=== PATIENT | female | born 1945 | race Two or more races ===

== ENCOUNTER → 2017-06-23 | Outpatient (CLI) | payer MEDICARE, OTHER ==
[~2017-06-23] MED LIST: ALBUAER3 IN; CLON0.1T PO; LEVA3NEB9 NEB; LEVO-28 PO; LISI-646 PO; PRED1SUS3 OP; Pantoprazole Sodium Sesquihydr PO; [UNRECOGNIZED DRUG - CODE] OP
== END | disposition home or self-care (01) ==
LOC: Rad HDHVI 15:03
PROVIDERS: ATTEND Internal Medicine Cardiovascular Disease
DX: I08.0 Rheumatic disorders of both mitral and aortic valves (principal)
CPT/HCPCS: 93306; 93880

== ENCOUNTER 2018-03-08 19:16 | Emergency (ER) | payer MEDICARE, OTHER ==
[~2018-03-08] VITALS: Ht 154.9 cm; Wt 88.5 kg
[2018-03-08] MEDS: HYDROcodone-ACET 10/325MG TAB PO ONE (22:42)
[2018-03-08 23:09] VITALS: BP 185/92
== END 2018-03-09 00:44 | disposition home or self-care (01) ==
LOC: ER 19:20
DX: S42.452A Displaced fracture of lateral condyle of left humerus, initial encounter for closed fracture (principal); S16.1XXA Strain of muscle, fascia and tendon at neck level, initial encounter; S09.8XXA Other specified injuries of head, initial encounter; Z88.1 Allergy status to other antibiotic agents; Z88.2 Allergy status to sulfonamides; Z91.013 Allergy to seafood; W01.0XXA Fall on same level from slipping, tripping and stumbling without subsequent striking against object, initial encounter; Y93.89 Activity, other specified; Y92.89 Other specified places as the place of occurrence of the external cause; Y99.8 Other external cause status
CPT/HCPCS: 70450; 71250; 72125; 73060; 73200; 74176

== ENCOUNTER 2022-11-06 18:28 | Inpatient (IN) | payer MEDICARE, OTHER ==
[~2022-11-06] VITALS: Ht 160 cm; Wt 75.3 kg
[~2022-11-06 18:28] MED LIST changes: +CLIN150C PO; +KETO0.3S OP; -LEVO-28 PO; -LISI-646 PO; +LISI20TA56 PO; -PRED1SUS3 OP; +PRED1SUS4 OP; -[UNRECOGNIZED DRUG - CODE] OP
[2022-11-06] MEDS ORDERED: ETOMIDATE (2MG/ML) 20ML VIAL IV ONE ×2 (18:38→19:15)
[2022-11-06] MEDS ORDERED: SUCCINYLCHOLINE CHLORIDE 20 MG/ML 10ML VIAL IV ONE ×2 (18:39→19:15)
[2022-11-06] MEDS ORDERED: ROCURONIUM 10MG/ML 10ML VIAL IV ONE ×2 (18:39→19:15)
[2022-11-06] MEDS ORDERED: PROPOFOL 100 ML IV ONE (18:51)
[2022-11-06] MEDS ORDERED: PROPOFOL 100 ML IV SCH ×2 (19:00→19:15)
[2022-11-06] MEDS ORDERED: SODIUM CHLORIDE 0.9% 1,000 ML IV ONE (19:15)
[2022-11-06 19:19] LABS: Mean Corpuscular Hemoglobin 15.9 pg (28.0-32.0); Mean Corpuscular Hgb Conc. 25.2 g/dL (32.0-36.0); White Blood Cell 8.6 10^3/uL (4.4-10.8)
[2022-11-06 19:21] LABS: Hematocrit 25.8 % (36.0-46.0); Mean Corpuscular Volume 63.1 fL (80.0-100.0); Red Blood Cells 4.08 10^6/uL (4.0-5.20)
[2022-11-06 19:28] LABS: Albumin 3.6 g/dL (3.4-5.0); Calcium 8.4 mg/dL (8.5-10.1); Potassium 5.2 mmol/L (3.5-5.1); Red Cell Distribution Width 22.6 % (11.8-14.3)
[2022-11-06 19:30] LABS: Hemoglobin 6.5 g/dL (12.2-16.2)
[2022-11-06 19:31] LABS: BUN/Creatinine Ratio 18.7 (10.0-20.0); Band Neutrophils % (manual) 0; Basophils % (manual) 0 (0.0-2.0); Bilirubin, Total 0.8 mg/dL (0.2-1.0); Blast Cells 0; Metamyelocytes % 0; Myelocytes % 0; Promyelocytes % 0; Reactive Lymphocytes 0; Total Protein 6.9 g/dL (6.4-8.2)
[2022-11-06 19:44] LABS: INR 1.22 (0.9-1.15); Partial Thromboplastin Time < 20.0 sec (24.6-33.4)
[2022-11-06 19:50] LABS: Eosinophils % (manual) 1 (0-7); Lymphocytes % (manual) 29 (10.0-50.0); Monocytes % (manual) 1 (0-12)
[2022-11-06] MEDS: fentaNYL Drip 2500mCg/250mlNS 250 ML IV SCH (21:00)
[2022-11-06 21:08] VITALS: BP 143/84
[2022-11-06 21:40] VITALS: BP 114/58
[2022-11-06 23:45] VITALS: BP 104/62
[2022-11-07] VITALS (93 sets, daily range): BP systolic 76–154; BP diastolic 43–78
[2022-11-07] MEDS ORDERED: DEXTROSE (50%) 50ML SYRG IV PRN (01:45)
[2022-11-07] MEDS ORDERED: ACETAMINOPHEN 650 MG RECT SUPP PR PRN (01:45)
[2022-11-07] MEDS ORDERED: AZITHROMYCIN 500MG/ 250ML 250 ML IV ONE (01:45)
[2022-11-07] MEDS ORDERED: NITROGLYCERIN 0.4 MG SL TAB SL PRN (01:45)
[2022-11-07] MEDS ORDERED: MORPHINE SULFATE INJ 2 MG/ml SYRG IV PRN (01:45)
[2022-11-07] MEDS ORDERED: ONDANSETRON HCL 4 MG/2 ML VIAL IV PRN (01:45)
[2022-11-07] MEDS ORDERED: FUROSEMIDE 20 MG/2 ML VIAL IV ONE (01:45)
[2022-11-07] MEDS ORDERED: MIDAZOLAM DRIP 50 mg/50mL 50 ML IV ONE ×2 (02:05→08:35)
[2022-11-07] MEDS: MIDAZOLAM DRIP 50 mg/50mL 50 ML IV SCH ×5 (02:26→22:00)
[2022-11-07 03:57] LABS: Albumin 2.8 g/dL (3.4-5.0); BUN/Creatinine Ratio 22.5 (10.0-20.0); Calcium 8.8 mg/dL (8.5-10.1); Potassium 4.5 mmol/L (3.5-5.1)
[2022-11-07 04:00] LABS: Bilirubin, Total 0.7 mg/dL (0.2-1.0); Total Protein 5.6 g/dL (6.4-8.2)
[2022-11-07 04:27] LABS: Mean Corpuscular Volume 58.4 fL (80.0-100.0); White Blood Cell 6.2 10^3/uL (4.4-10.8)
[2022-11-07 04:29] LABS: Hematocrit 18.9 % (36.0-46.0); Mean Corpuscular Hemoglobin 16.1 pg (28.0-32.0); Mean Corpuscular Hgb Conc. 27.5 g/dL (32.0-36.0); Red Blood Cells 3.24 10^6/uL (4.0-5.20)
[2022-11-07 04:39] LABS: Red Cell Distribution Width 21.5 % (11.8-14.3)
[2022-11-07 04:41] LABS: Hemoglobin 5.2 g/dL (12.2-16.2)
[2022-11-07 04:43] LABS: Band Neutrophils % (manual) 0; Basophils % (manual) 0 (0.0-2.0); Blast Cells 0; Eosinophils % (manual) 0 (0-7); Metamyelocytes % 0; Myelocytes % 0; Promyelocytes % 0; Reactive Lymphocytes 0
[2022-11-07] MEDS: ACCU-CHEK COMFORT CURVE STRIP VI SCH ×4 (06:00→23:22)
[2022-11-07] MEDS: InsuLIN REG 1unit/0.01ml Soln (100units/ml) SC SCH ×4 (06:00→23:22)
[2022-11-07] MEDS: SODIUM CHLOR 0.9% PF (SALINE LOCK) 10ML VIAL/SYR IV SCH ×3 (06:00→22:13)
[2022-11-07] MEDS: NOREPINEPHRINE 8 MG/250ML KIT 250 ML IV SCH (06:43)
[2022-11-07] MEDS ORDERED: fentaNYL Drip 2500mCg/250mlNS 250 ML IV ONE (08:35)
[2022-11-07 09:20] LABS: Lymphocytes % (manual) 29 (10.0-50.0)
[2022-11-07 09:21] LABS: Monocytes % (manual) 7 (0-12)
[2022-11-07] MEDS ORDERED: FAMOTIDINE (10MG/ML) 2ML VL IV SCH (10:00)
[2022-11-07] MEDS: FUROSEMIDE 40 MG/4 ML VIAL IV SCH (10:43)
[2022-11-07] MEDS: HEPARIN SODIUM (PORCINE) 5000 UNITS/ML 1ML VIAL SC SCH ×2 (10:44→22:18)
[2022-11-07] MEDS: AZITHROMYCIN 500MG/ 250ML 250 ML IV SCH (12:07)
[2022-11-07] MEDS ORDERED: PANTOPRAZOLE 40 MG/10 ML VIAL INJ IV ONE (15:30)
[2022-11-07] MEDS ORDERED: cefTRIAXone 1GM/50ML D5W 50 ML IV ONE (15:30)
[2022-11-07] MEDS: fentaNYL Drip 2500mCg/250mlNS 250 ML IV SCH (21:11)
[2022-11-08] VITALS (106 sets, daily range): BP systolic 50–167; BP diastolic 11–90
[2022-11-08] MEDS ORDERED: NITROGLYCERIN 2% OINT 1GM PKG TD ONE (04:00)
[2022-11-08 04:32] LABS: Potassium 3.5 mmol/L (3.5-5.1)
[2022-11-08 04:33] LABS: INR 1.25 (0.9-1.15); Partial Thromboplastin Time < 20.0 sec (24.6-33.4)
[2022-11-08 04:38] LABS: Albumin 2.7 g/dL (3.4-5.0)
[2022-11-08 04:41] LABS: Bilirubin, Total 1.8 mg/dL (0.2-1.0); Total Protein 5.9 g/dL (6.4-8.2)
[2022-11-08] MEDS: PANTOPRAZOLE 40 MG/10 ML VIAL INJ IV SCH ×2 (04:47→17:22)
[2022-11-08] MEDS: MIDAZOLAM DRIP 50 mg/50mL 50 ML IV SCH ×4 (04:55→18:00)
[2022-11-08] MEDS: NOREPINEPHRINE 8 MG/250ML KIT 250 ML IV SCH ×2 (05:30→12:34)
[2022-11-08] MEDS: SODIUM CHLOR 0.9% PF (SALINE LOCK) 10ML VIAL/SYR IV SCH ×4 (05:34→21:39)
[2022-11-08] MEDS: InsuLIN REG 1unit/0.01ml Soln (100units/ml) SC SCH ×3 (05:34→18:04)
[2022-11-08] MEDS: ACCU-CHEK COMFORT CURVE STRIP VI SCH ×3 (05:34→18:03)
[2022-11-08 06:47] LABS: Basophils # (auto) 0.1 10 ^3/uL (0-0.2); Mean Corpuscular Volume 65.2 fL (80.0-100.0)
[2022-11-08 06:49] LABS: Basophils % (auto) 0.9 % (0.0-2.0); Eosinophils # (auto) 0 10 ^3/uL (0-0.8); Eosinophils % (auto) 0.7 % (0.0-7.0); Hematocrit 17.9 % (36.0-46.0); Lymphocytes # (auto) 0.7 10 ^3/uL (0.4-5.4); Lymphocytes % (auto) 12.2 % (10.0-50.0); Mean Corpuscular Hemoglobin 19.3 pg (28.0-32.0); Mean Corpuscular Hgb Conc. 29.6 g/dL (32.0-36.0); Monocytes # (auto) 0.4 10 ^3/uL (0-1.3); Monocytes % (auto) 6.5 % (0.0-12.0); Neutrophils # (auto) 4.7 10 ^3/uL (1.6-8.6); Neutrophils % (auto) 79.7 % (37.0-80.0); Nucleated Red Blood Cells % 0.5 %; Red Blood Cells 2.75 10^6/uL (4.0-5.20); White Blood Cell 5.9 10^3/uL (4.4-10.8)
[2022-11-08 06:54] LABS: Red Cell Distribution Width 26.8 % (11.8-14.3)
[2022-11-08 06:56] LABS: Hemoglobin 5.3 g/dL (12.2-16.2)
[2022-11-08 09:26] LABS: Hemoglobin 10.3 g/dL (12.2-16.2); Mean Corpuscular Hemoglobin 18.6 pg (28.0-32.0)
[2022-11-08 09:27] LABS: Basophils # (auto) 0.2 10 ^3/uL (0-0.2); Basophils % (auto) 1.2 % (0.0-2.0); Eosinophils # (auto) 0.2 10 ^3/uL (0-0.8); Eosinophils % (auto) 1.7 % (0.0-7.0); Hematocrit 35.3 % (36.0-46.0); Lymphocytes # (auto) 1.5 10 ^3/uL (0.4-5.4); Lymphocytes % (auto) 11.1 % (10.0-50.0); Mean Corpuscular Hgb Conc. 29.1 g/dL (32.0-36.0); Mean Corpuscular Volume 63.8 fL (80.0-100.0); Monocytes % (auto) 7.8 % (0.0-12.0); Neutrophils # (auto) 10.4 10 ^3/uL (1.6-8.6); Neutrophils % (auto) 78.2 % (37.0-80.0); Nucleated Red Blood Cells % 2.2 %; Red Blood Cells 5.53 10^6/uL (4.0-5.20); White Blood Cell 13.3 10^3/uL (4.4-10.8)
[2022-11-08 09:30] LABS: Red Cell Distribution Width 27.5 % (11.8-14.3)
[2022-11-08] MEDS: cefTRIAXone 1GM/50ML D5W 50 ML IV SCH ×2 (09:31→13:00)
[2022-11-08] MEDS: fentaNYL Drip 2500mCg/250mlNS 250 ML IV SCH (09:32)
[2022-11-08] MEDS: HEPARIN SODIUM (PORCINE) 5000 UNITS/ML 1ML VIAL SC SCH ×2 (09:33→21:40)
[2022-11-08] MEDS: FUROSEMIDE 40 MG/4 ML VIAL IV SCH (09:51)
[2022-11-08] MEDS: LIDOCAINE 1% (LOCAL ANESTH.) PF 5ml SDV ID ONE (10:45)
[2022-11-08] MEDS: AZITHROMYCIN 500MG/ 250ML 250 ML IV SCH (13:38)
[2022-11-08] MEDS ORDERED: MIDAZOLAM HCL 2MG/2ML 2ml VIAL (1mg/ml) IV PRN (18:00)
[2022-11-09] VITALS (102 sets, daily range): BP systolic 93–155; BP diastolic 36–93
[2022-11-09] MEDS: ACCU-CHEK COMFORT CURVE STRIP VI SCH ×4 (00:32→18:06)
[2022-11-09] MEDS: InsuLIN REG 1unit/0.01ml Soln (100units/ml) SC SCH ×4 (00:35→18:00)
[2022-11-09] MEDS: PANTOPRAZOLE 40 MG/10 ML VIAL INJ IV SCH ×2 (02:58→15:41)
[2022-11-09 04:02] LABS: Basophils # (auto) 0.1 10 ^3/uL (0-0.2); Eosinophils # (auto) 0.1 10 ^3/uL (0-0.8); Monocytes # (auto) 0.6 10 ^3/uL (0-1.3); White Blood Cell 12.8 10^3/uL (4.4-10.8)
[2022-11-09 04:04] LABS: Basophils % (auto) 0.6 % (0.0-2.0); Eosinophils % (auto) 0.8 % (0.0-7.0); Hematocrit 30.4 % (36.0-46.0); Hemoglobin 9.1 g/dL (12.2-16.2); Lymphocytes # (auto) 1.7 10 ^3/uL (0.4-5.4); Lymphocytes % (auto) 13.5 % (10.0-50.0); Mean Corpuscular Hemoglobin 19.1 pg (28.0-32.0); Mean Corpuscular Volume 63.7 fL (80.0-100.0); Neutrophils # (auto) 10.3 10 ^3/uL (1.6-8.6); Neutrophils % (auto) 80.1 % (37.0-80.0); Nucleated Red Blood Cells % 0.1 %; Red Blood Cells 4.78 10^6/uL (4.0-5.20)
[2022-11-09 04:13] LABS: Red Cell Distribution Width 28.2 % (11.8-14.3)
[2022-11-09 04:18] LABS: Potassium 3.4 mmol/L (3.5-5.1)
[2022-11-09 04:25] LABS: Albumin 2.6 g/dL (3.4-5.0); BUN/Creatinine Ratio 19.4 (10.0-20.0); Calcium 8.1 mg/dL (8.5-10.1); Magnesium 2.1 mg/dL (1.6-2.6); Total Protein 5.6 g/dL (6.4-8.2)
[2022-11-09] MEDS: SODIUM CHLOR 0.9% PF (SALINE LOCK) 10ML VIAL/SYR IV SCH ×4 (06:11→22:31)
[2022-11-09] MEDS: cefTRIAXone 1GM/50ML D5W 50 ML IV SCH (09:35)
[2022-11-09] MEDS: AZITHROMYCIN 500MG/ 250ML 250 ML IV SCH (10:12)
[2022-11-09] MEDS: FUROSEMIDE 40 MG/4 ML VIAL IV SCH (10:25)
[2022-11-09] MEDS: HEPARIN SODIUM (PORCINE) 5000 UNITS/ML 1ML VIAL SC SCH ×2 (10:30→22:32)
[2022-11-09] MEDS: POTASSIUM CHL 20MEQ/100ML 100 ML IV SCH ×3 (15:40→18:06)
[2022-11-09] MEDS ORDERED: CLINIMIX PER PHARMACY 0 ML IV SCH (19:00)
[2022-11-09] MEDS ORDERED: DEXTROSE (50%) 50ML SYRG IV SCH (21:15)
[2022-11-09] MEDS: AMINO ACID INFUSION IN D10W 1,000 ML IV NR (22:30)
[2022-11-10] VITALS (103 sets, daily range): BP systolic 80–175; BP diastolic 36–92
[2022-11-10] MEDS: PANTOPRAZOLE 40 MG/10 ML VIAL INJ IV SCH ×2 (03:00→15:28)
[2022-11-10] MEDS: ACCU-CHEK COMFORT CURVE STRIP VI SCH ×5 (06:00→23:47)
[2022-11-10] MEDS: InsuLIN REG 1unit/0.01ml Soln (100units/ml) SC SCH ×5 (06:33→23:48)
[2022-11-10 07:08] LABS: Hematocrit 28.3 % (36.0-46.0); Hemoglobin 8.3 g/dL (12.2-16.2); Mean Corpuscular Hemoglobin 18.7 pg (28.0-32.0); Mean Corpuscular Hgb Conc. 29.4 g/dL (32.0-36.0); Mean Corpuscular Volume 63.7 fL (80.0-100.0); Red Blood Cells 4.45 10^6/uL (4.0-5.20); White Blood Cell 13.3 10^3/uL (4.4-10.8)
[2022-11-10 07:11] LABS: Red Cell Distribution Width 28.2 % (11.8-14.3)
[2022-11-10 07:13] LABS: Band Neutrophils % (manual) 0; Basophils % (manual) 0 (0.0-2.0); Blast Cells 0; Metamyelocytes % 0; Myelocytes % 0; Promyelocytes % 0; Reactive Lymphocytes 0
[2022-11-10 07:24] LABS: Albumin 2.3 g/dL (3.4-5.0); Magnesium 1.9 mg/dL (1.6-2.6); Potassium 3.7 mmol/L (3.5-5.1)
[2022-11-10 07:28] LABS: BUN/Creatinine Ratio 23.6 (10.0-20.0); Bilirubin, Total 0.9 mg/dL (0.2-1.0); Phosphorus 2.8 mg/dL (2.5-4.90); Total Protein 5.6 g/dL (6.4-8.2)
[2022-11-10 08:17] LABS: Eosinophils % (manual) 1 (0-7); Lymphocytes % (manual) 13 (10.0-50.0); Monocytes % (manual) 4 (0-12)
[2022-11-10] MEDS ORDERED: MAGNESIUM SULFATE 1GM/100ML 100 ML IV ONE (08:30)
[2022-11-10 09:46] LABS: Urine Bacteria FEW /hpf (None Seen); Urine Blood 3+ /uL (Negative); Urine Mucus FEW (None Seen); Urine Specific Gravity 1.023 (1.001-1.035); Urine WBC 20 /hpf (0 - 5)
[2022-11-10] MEDS: FUROSEMIDE 40 MG/4 ML VIAL IV SCH (10:05)
[2022-11-10] MEDS: HEPARIN SODIUM (PORCINE) 5000 UNITS/ML 1ML VIAL SC SCH ×2 (10:06→21:41)
[2022-11-10] MEDS: SODIUM CHLOR 0.9% PF (SALINE LOCK) 10ML VIAL/SYR IV SCH ×2 (10:19→21:56)
[2022-11-10] MEDS: cefTRIAXone 1GM/50ML D5W 50 ML IV SCH (10:19)
[2022-11-10] MEDS: AZITHROMYCIN 500MG/ 250ML 250 ML IV SCH (11:09)
[2022-11-10] MEDS: fentaNYL Drip 2500mCg/250mlNS 250 ML IV SCH (12:47)
[2022-11-10] MEDS: NOREPINEPHRINE 8 MG/250ML KIT 250 ML IV SCH (12:47)
[2022-11-10] MEDS ORDERED: AMINO ACID INFUSION IN D10W 1,000 ML IV NR (20:00)
[2022-11-10] MEDS: AMINO ACID INFUSION IN D10W 1,000 ML IV NR (21:42)
[2022-11-11] VITALS (89 sets, daily range): BP systolic 78–208; BP diastolic 39–108
[2022-11-11] MEDS: PANTOPRAZOLE 40 MG/10 ML VIAL INJ IV SCH ×2 (03:28→15:04)
[2022-11-11 04:19] LABS: Potassium 3.1 mmol/L (3.5-5.1)
[2022-11-11 04:25] LABS: Albumin 2.2 g/dL (3.4-5.0); BUN/Creatinine Ratio 31.3 (10.0-20.0); Bilirubin, Total 0.8 mg/dL (0.2-1.0); Calcium 8.1 mg/dL (8.5-10.1); Phosphorus 2.1 mg/dL (2.5-4.90); Total Protein 5.4 g/dL (6.4-8.2)
[2022-11-11 04:35] LABS: Red Blood Cells 3.98 10^6/uL (4.0-5.20)
[2022-11-11 04:37] LABS: Hematocrit 25.4 % (36.0-46.0); Hemoglobin 7.7 g/dL (12.2-16.2); Mean Corpuscular Hemoglobin 19.2 pg (28.0-32.0); Mean Corpuscular Hgb Conc. 30.1 g/dL (32.0-36.0); Mean Corpuscular Volume 63.9 fL (80.0-100.0)
[2022-11-11 04:44] LABS: Band Neutrophils % (manual) 0; Basophils % (manual) 0 (0.0-2.0); Blast Cells 0; Metamyelocytes % 0; Myelocytes % 0; Promyelocytes % 0; Reactive Lymphocytes 0
[2022-11-11] MEDS: NOREPINEPHRINE 8 MG/250ML KIT 250 ML IV SCH (05:30)
[2022-11-11] MEDS: ACCU-CHEK COMFORT CURVE STRIP VI SCH ×4 (06:00→23:58)
[2022-11-11] MEDS: InsuLIN REG 1unit/0.01ml Soln (100units/ml) SC SCH ×3 (06:52→18:21)
[2022-11-11 08:16] LABS: Eosinophils % (manual) 2 (0-7); Lymphocytes % (manual) 9 (10.0-50.0); Monocytes % (manual) 4 (0-12)
[2022-11-11] MEDS: FUROSEMIDE 40 MG/4 ML VIAL IV SCH (09:37)
[2022-11-11] MEDS: cefTRIAXone 1GM/50ML D5W 50 ML IV SCH (09:38)
[2022-11-11] MEDS: AZITHROMYCIN 500MG/ 250ML 250 ML IV SCH (09:38)
[2022-11-11] MEDS: SODIUM CHLOR 0.9% PF (SALINE LOCK) 10ML VIAL/SYR IV SCH ×2 (09:41→21:30)
[2022-11-11] MEDS: HEPARIN SODIUM (PORCINE) 5000 UNITS/ML 1ML VIAL SC SCH ×2 (09:43→21:31)
[2022-11-11] MEDS ORDERED: POTASSIUM PHOSPHATE 44 MEQ in D5W 5% 250 ML IV ONE (10:30)
[2022-11-11] MEDS: fentaNYL Drip 2500mCg/250mlNS 250 ML IV SCH ×2 (11:48→21:00)
[2022-11-11] MEDS: POTASSIUM CHL 20MEQ/100ML 100 ML IV SCH ×2 (11:57→15:04)
[2022-11-11] MEDS ORDERED: POTASSIUM PHOSPHATE 22 MEQ in SODIUM CHL 0.9% 100 ML IV ONE (14:00)
[2022-11-11] MEDS ORDERED: SODIUM PHOSPHATES 20 MEQ in SODIUM CHL 0.9% 100 ML IV ONE (18:00)
[2022-11-11] MEDS: PROPOFOL 100 ML IV SCH (18:07)
[2022-11-11] MEDS: AMINO ACID INFUSION IN D10W 1,000 ML IV NR (20:08)
[2022-11-12] VITALS (92 sets, daily range): BP systolic 104–167; BP diastolic 46–92
[2022-11-12] MEDS: PROPOFOL 100 ML IV SCH (01:57)
[2022-11-12] MEDS: PANTOPRAZOLE 40 MG/10 ML VIAL INJ IV SCH ×2 (03:07→17:07)
[2022-11-12] MEDS: NOREPINEPHRINE 8 MG/250ML KIT 250 ML IV SCH (04:24)
[2022-11-12 04:40] LABS: Albumin 2.2 g/dL (3.4-5.0); Calcium 8.2 mg/dL (8.5-10.1); Magnesium 1.9 mg/dL (1.6-2.6); Potassium 3.2 mmol/L (3.5-5.1)
[2022-11-12 04:42] LABS: BUN/Creatinine Ratio 31.6 (10.0-20.0)
[2022-11-12 04:44] LABS: Phosphorus 2.2 mg/dL (2.5-4.90); Total Protein 5.8 g/dL (6.4-8.2)
[2022-11-12 05:02] LABS: Hematocrit 27.1 % (36.0-46.0); Mean Corpuscular Hemoglobin 19.1 pg (28.0-32.0); Mean Corpuscular Hgb Conc. 29.6 g/dL (32.0-36.0); Mean Corpuscular Volume 64.6 fL (80.0-100.0); Red Blood Cells 4.19 10^6/uL (4.0-5.20); Red Cell Distribution Width 28.2 % (11.8-14.3); White Blood Cell 8.1 10^3/uL (4.4-10.8)
[2022-11-12 05:04] LABS: Band Neutrophils % (manual) 0; Basophils % (manual) 0 (0.0-2.0); Blast Cells 0; Metamyelocytes % 0; Myelocytes % 0; Promyelocytes % 0; Reactive Lymphocytes 0
[2022-11-12] MEDS: ACCU-CHEK COMFORT CURVE STRIP VI SCH ×3 (06:20→17:53)
[2022-11-12] MEDS: InsuLIN REG 1unit/0.01ml Soln (100units/ml) SC SCH ×4 (06:37→17:53)
[2022-11-12 08:58] LABS: Eosinophils % (manual) 3 (0-7); Lymphocytes % (manual) 25 (10.0-50.0); Monocytes % (manual) 7 (0-12)
[2022-11-12] MEDS ORDERED: ALBUTEROL SULF 2.5 MG/0.5ML(0.5%) NEB SOLN ONE (09:44)
[2022-11-12] MEDS ORDERED: IPRATROPIUM BROM 0.5 MG/2.5ML INH SOL ONE (09:44)
[2022-11-12] MEDS: FUROSEMIDE 40 MG/4 ML VIAL IV SCH (09:57)
[2022-11-12] MEDS: AZITHROMYCIN 500MG/ 250ML 250 ML IV SCH (09:57)
[2022-11-12] MEDS: cefTRIAXone 1GM/50ML D5W 50 ML IV SCH (09:58)
[2022-11-12] MEDS: POTASSIUM CHL 20MEQ/100ML 100 ML IV SCH ×2 (09:58→10:00)
[2022-11-12] MEDS: HEPARIN SODIUM (PORCINE) 5000 UNITS/ML 1ML VIAL SC SCH ×2 (10:08→21:57)
[2022-11-12] MEDS: SODIUM CHLOR 0.9% PF (SALINE LOCK) 10ML VIAL/SYR IV SCH ×2 (10:09→21:55)
[2022-11-12] MEDS ORDERED: POTASSIUM PHOSPHATE 22 MEQ in SODIUM CHL 0.9% 100 ML IV ONE (11:00)
[2022-11-12] MEDS ORDERED: IPRATROPIUM BROM 0.5 MG/2.5ML INH SOL NEB SCH (14:00)
[2022-11-12] MEDS: ALBUTEROL SULF 2.5 MG/0.5ML(0.5%) NEB SOLN NEB SCH ×3 (14:39→22:16)
[2022-11-12] MEDS: IPRATROPIUM BROM 0.5 MG/2.5ML INH SOL NEB SCH ×2 (14:39→18:12)
[2022-11-12] MEDS: fentaNYL Drip 2500mCg/250mlNS 250 ML IV SCH (20:14)
[2022-11-12] MEDS: AMINO ACID INFUSION IN D10W 1,000 ML IV NR (20:30)
[2022-11-13] VITALS (43 sets, daily range): BP systolic 107–154; BP diastolic 50–82
[2022-11-13] MEDS: ACCU-CHEK COMFORT CURVE STRIP VI SCH ×6 (00:01→23:26)
[2022-11-13] MEDS: InsuLIN REG 1unit/0.01ml Soln (100units/ml) SC SCH ×5 (00:07→23:28)
[2022-11-13] MEDS: IPRATROPIUM BROM 0.5 MG/2.5ML INH SOL NEB SCH ×6 (02:06→22:05)
[2022-11-13] MEDS: ALBUTEROL SULF 2.5 MG/0.5ML(0.5%) NEB SOLN NEB SCH ×6 (02:06→22:05)
[2022-11-13] MEDS: PANTOPRAZOLE 40 MG/10 ML VIAL INJ IV SCH ×2 (03:29→15:30)
[2022-11-13] MEDS: NOREPINEPHRINE 8 MG/250ML KIT 250 ML IV SCH (03:30)
[2022-11-13 04:10] LABS: Eosinophils # (auto) 0.2 10 ^3/uL (0-0.8)
[2022-11-13 04:13] LABS: Basophils # (auto) 0.1 10 ^3/uL (0-0.2); Basophils % (auto) 0.8 % (0.0-2.0); Eosinophils % (auto) 2.9 % (0.0-7.0); Hematocrit 28.1 % (36.0-46.0); Hemoglobin 8.2 g/dL (12.2-16.2); Lymphocytes # (auto) 1.2 10 ^3/uL (0.4-5.4); Lymphocytes % (auto) 17.5 % (10.0-50.0); Mean Corpuscular Volume 65.5 fL (80.0-100.0); Monocytes # (auto) 0.9 10 ^3/uL (0-1.3); Monocytes % (auto) 12.7 % (0.0-12.0); Neutrophils # (auto) 4.6 10 ^3/uL (1.6-8.6); Neutrophils % (auto) 66.1 % (37.0-80.0); Nucleated Red Blood Cells % 0.1 %; Red Blood Cells 4.28 10^6/uL (4.0-5.20); White Blood Cell 6.9 10^3/uL (4.4-10.8)
[2022-11-13 04:19] LABS: Albumin 2.3 g/dL (3.4-5.0); Calcium 8.7 mg/dL (8.5-10.1); Potassium 3.7 mmol/L (3.5-5.1)
[2022-11-13 04:22] LABS: BUN/Creatinine Ratio 33.8 (10.0-20.0); Bilirubin, Total 1.1 mg/dL (0.2-1.0); Phosphorus 3.2 mg/dL (2.5-4.90)
[2022-11-13] MEDS: SODIUM CHLOR 0.9% PF (SALINE LOCK) 10ML VIAL/SYR IV SCH ×2 (08:58→23:06)
[2022-11-13] MEDS: cefTRIAXone 1GM/50ML D5W 50 ML IV SCH (08:58)
[2022-11-13] MEDS: FUROSEMIDE 40 MG/4 ML VIAL IV SCH (08:58)
[2022-11-13] MEDS: HEPARIN SODIUM (PORCINE) 5000 UNITS/ML 1ML VIAL SC SCH ×2 (08:59→23:26)
[2022-11-13] MEDS: AZITHROMYCIN 500MG/ 250ML 250 ML IV SCH (09:30)
[2022-11-13] MEDS: Glucerna Carbsteady SHAKE Vanilla 8oz PO SCH (17:54)
[2022-11-13] MEDS: AMINO ACID INFUSION IN D10W 1,000 ML IV NR (20:52)
[2022-11-14] MEDS: ALBUTEROL SULF 2.5 MG/0.5ML(0.5%) NEB SOLN NEB SCH ×6 (02:05→22:00)
[2022-11-14] MEDS: IPRATROPIUM BROM 0.5 MG/2.5ML INH SOL NEB SCH ×4 (02:05→18:00)
[2022-11-14] MEDS: PANTOPRAZOLE 40 MG/10 ML VIAL INJ IV SCH ×2 (02:18→15:00)
[2022-11-14 05:00] VITALS: BP 98/50
[2022-11-14] MEDS: ACCU-CHEK COMFORT CURVE STRIP VI SCH ×4 (05:30→23:23)
[2022-11-14] MEDS: InsuLIN REG 1unit/0.01ml Soln (100units/ml) SC SCH ×4 (05:37→23:24)
[2022-11-14 06:32] LABS: Basophils # (auto) 0.1 10 ^3/uL (0-0.2); Eosinophils # (auto) 0.2 10 ^3/uL (0-0.8); Eosinophils % (auto) 3.4 % (0.0-7.0); Hemoglobin 8.2 g/dL (12.2-16.2); Lymphocytes # (auto) 1.3 10 ^3/uL (0.4-5.4); Monocytes # (auto) 0.8 10 ^3/uL (0-1.3); Neutrophils # (auto) 4.6 10 ^3/uL (1.6-8.6); Neutrophils % (auto) 65.7 % (37.0-80.0)
[2022-11-14 06:34] LABS: Basophils % (auto) 1.7 % (0.0-2.0); Hematocrit 27.9 % (36.0-46.0); Lymphocytes % (auto) 18.4 % (10.0-50.0); Mean Corpuscular Hemoglobin 19.1 pg (28.0-32.0); Mean Corpuscular Hgb Conc. 29.4 g/dL (32.0-36.0); Mean Corpuscular Volume 64.9 fL (80.0-100.0); Monocytes % (auto) 10.8 % (0.0-12.0)
[2022-11-14 06:45] LABS: Albumin 2.5 g/dL (3.4-5.0); BUN/Creatinine Ratio 40.6 (10.0-20.0); Calcium 8.7 mg/dL (8.5-10.1); Potassium 3.7 mmol/L (3.5-5.1)
[2022-11-14 07:03] LABS: Red Cell Distribution Width 28.3 % (11.8-14.3)
[2022-11-14] MEDS: Glucerna Carbsteady SHAKE Vanilla 8oz PO SCH ×3 (08:00→18:35)
[2022-11-14] MEDS: cefTRIAXone 1GM/50ML D5W 50 ML IV SCH (08:51)
[2022-11-14 09:00] VITALS: BP 114/57
[2022-11-14] MEDS: SODIUM CHLOR 0.9% PF (SALINE LOCK) 10ML VIAL/SYR IV SCH ×2 (11:06→22:50)
[2022-11-14] MEDS: FUROSEMIDE 40 MG/4 ML VIAL IV SCH (11:06)
[2022-11-14] MEDS: AZITHROMYCIN 500MG/ 250ML 250 ML IV SCH (11:07)
[2022-11-14] MEDS: HEPARIN SODIUM (PORCINE) 5000 UNITS/ML 1ML VIAL SC SCH ×2 (11:08→22:00)
[2022-11-14 12:20] VITALS: BP 119/57
[2022-11-14 17:00] VITALS: BP 135/76
[2022-11-14] MEDS: AMINO ACID INFUSION IN D10W 1,000 ML IV NR (19:35)
[2022-11-14 20:00] VITALS: BP 107/66
[2022-11-14 22:00] VITALS: BP 107/66
[2022-11-15] MEDS: IPRATROPIUM BROM 0.5 MG/2.5ML INH SOL NEB SCH ×5 (01:53→18:49)
[2022-11-15] MEDS: ALBUTEROL SULF 2.5 MG/0.5ML(0.5%) NEB SOLN NEB SCH ×6 (01:53→22:12)
[2022-11-15] MEDS: PANTOPRAZOLE 40 MG/10 ML VIAL INJ IV SCH ×2 (02:54→15:23)
[2022-11-15 05:00] VITALS: BP 110/55
[2022-11-15] MEDS: InsuLIN REG 1unit/0.01ml Soln (100units/ml) SC SCH ×4 (07:19→21:34)
[2022-11-15] MEDS: ACCU-CHEK COMFORT CURVE STRIP VI SCH ×4 (07:19→21:19)
[2022-11-15] MEDS: Glucerna Carbsteady SHAKE Vanilla 8oz PO SCH ×3 (08:00→18:13)
[2022-11-15 08:03] LABS: Calcium 8.9 mg/dL (8.5-10.1); Potassium 3.8 mmol/L (3.5-5.1)
[2022-11-15 08:09] LABS: Albumin 2.6 g/dL (3.4-5.0); BUN/Creatinine Ratio 36.3 (10.0-20.0); Bilirubin, Total 0.7 mg/dL (0.2-1.0); Phosphorus 3.2 mg/dL (2.5-4.90); Total Protein 6.4 g/dL (6.4-8.2)
[2022-11-15 08:19] LABS: Hematocrit 28.9 % (36.0-46.0); Hemoglobin 8.4 g/dL (12.2-16.2); Mean Corpuscular Hgb Conc. 29.1 g/dL (32.0-36.0); Mean Corpuscular Volume 65.1 fL (80.0-100.0); Red Blood Cells 4.44 10^6/uL (4.0-5.20); White Blood Cell 7.8 10^3/uL (4.4-10.8)
[2022-11-15 08:22] LABS: Basophils % (manual) 0 (0.0-2.0); Blast Cells 0; Metamyelocytes % 0; Myelocytes % 0; Promyelocytes % 0; Reactive Lymphocytes 0; Red Cell Distribution Width 28.9 % (11.8-14.3)
[2022-11-15 08:30] VITALS: BP 100/53
[2022-11-15] MEDS: cefTRIAXone 1GM/50ML D5W 50 ML IV SCH (08:34)
[2022-11-15 09:02] LABS: Band Neutrophils % (manual) 2; Eosinophils % (manual) 1 (0-7); Lymphocytes % (manual) 20 (10.0-50.0); Monocytes % (manual) 14 (0-12)
[2022-11-15] MEDS ORDERED: DEXTROSE (50%) 50ML SYRG IV PRN (10:00)
[2022-11-15] MEDS: SODIUM CHLOR 0.9% PF (SALINE LOCK) 10ML VIAL/SYR IV SCH ×2 (10:22→21:19)
[2022-11-15] MEDS: AZITHROMYCIN 500MG/ 250ML 250 ML IV SCH (10:22)
[2022-11-15] MEDS: HEPARIN SODIUM (PORCINE) 5000 UNITS/ML 1ML VIAL SC SCH ×2 (10:28→21:24)
[2022-11-15 12:00] VITALS: BP 117/56
[2022-11-15 17:29] VITALS: BP 92/47
[2022-11-15 19:59] VITALS: BP 92/47
[2022-11-15 22:00] VITALS: BP 103/56
[2022-11-16] MEDS: PANTOPRAZOLE 40 MG/10 ML VIAL INJ IV SCH ×2 (02:15→15:09)
[2022-11-16] MEDS: IPRATROPIUM BROM 0.5 MG/2.5ML INH SOL NEB SCH ×4 (02:25→14:09)
[2022-11-16] MEDS: ALBUTEROL SULF 2.5 MG/0.5ML(0.5%) NEB SOLN NEB SCH ×4 (02:25→14:09)
[2022-11-16 05:00] VITALS: BP 106/61
[2022-11-16] MEDS: ACCU-CHEK COMFORT CURVE STRIP VI SCH ×3 (05:52→17:00)
[2022-11-16] MEDS: InsuLIN REG 1unit/0.01ml Soln (100units/ml) SC SCH ×3 (05:53→17:00)
[2022-11-16 06:30] LABS: BUN/Creatinine Ratio 40.6 (10.0-20.0); Calcium 9.2 mg/dL (8.5-10.1); Potassium 3.8 mmol/L (3.5-5.1)
[2022-11-16 08:00] VITALS: BP 109/64
[2022-11-16] MEDS: FUROSEMIDE 20 MG TAB PO SCH ×2 (09:00→10:00)
[2022-11-16 09:18] LABS: Hepatitis B Surface Antibody Negative (Negative)
[2022-11-16] MEDS: SODIUM CHLOR 0.9% PF (SALINE LOCK) 10ML VIAL/SYR IV SCH (09:19)
[2022-11-16] MEDS: cefTRIAXone 1GM/50ML D5W 50 ML IV SCH (09:19)
[2022-11-16] MEDS: AZITHROMYCIN 500MG/ 250ML 250 ML IV SCH (09:20)
[2022-11-16] MEDS: Glucerna Carbsteady SHAKE Vanilla 8oz PO SCH ×2 (09:24→15:09)
[2022-11-16] MEDS: HEPARIN SODIUM (PORCINE) 5000 UNITS/ML 1ML VIAL SC SCH (09:29)
[2022-11-16 09:37] LABS: Hepatitis A Total Antibody Positive (Negative)
[2022-11-16 12:00] VITALS: BP 111/63
[2022-11-16 12:46] LABS: Hepatitis C Antibody Negative (Negative)
[2022-11-16 16:00] VITALS: BP 113/63
== END 2022-11-16 18:00 | DRG 207 ==
LOC: ER 18:28 → ICU WEST 11-07 01:34 → ER 11-07 02:53 → TELE-CENTR 11-13 10:26
PROVIDERS: ADMIT Nurse Practitioner Family; ATTEND Internal Medicine Geriatric Medicine
PROC: 5A1955Z Respiratory Ventilation, Greater than 96 Consecutive Hours (ICD-10-PCS; 2022-11-06)
PROC: 0BH17EZ Insertion of Endotracheal Airway into Trachea, Via Natural or Artificial Opening (ICD-10-PCS; 2022-11-06)
PROC: 30233N1 Transfusion of Nonautologous Red Blood Cells into Peripheral Vein, Percutaneous Approach (ICD-10-PCS; 2022-11-07)
PROC: 02HV33Z Insertion of Infusion Device into Superior Vena Cava, Percutaneous Approach (ICD-10-PCS; principal; 2022-11-08)
PROC: B548ZZA Ultrasonography of Superior Vena Cava, Guidance (ICD-10-PCS; 2022-11-08)
DX: J96.01 Acute respiratory failure with hypoxia (principal); I21.4 Non-ST elevation (NSTEMI) myocardial infarction; J18.9 Pneumonia, unspecified organism; J44.0 Chronic obstructive pulmonary disease with (acute) lower respiratory infection; R57.9 Shock, unspecified; J44.1 Chronic obstructive pulmonary disease with (acute) exacerbation; N39.0 Urinary tract infection, site not specified; Z20.822 Contact with and (suspected) exposure to COVID-19; E66.01 Morbid (severe) obesity due to excess calories; E11.65 Type 2 diabetes mellitus with hyperglycemia; Z68.31 Body mass index [BMI] 31.0-31.9, adult; N19 Unspecified kidney failure; I50.9 Heart failure, unspecified; I11.0 Hypertensive heart disease with heart failure; E87.6 Hypokalemia; D50.9 Iron deficiency anemia, unspecified; E78.5 Hyperlipidemia, unspecified; Z95.2 Presence of prosthetic heart valve; Z91.013 Allergy to seafood; Z88.8 Allergy status to other drugs, medicaments and biological substances
CPT/HCPCS: 31500; 36415; 36569; 36600; 71045; 76705; 80048; 80053; 80069; 81001; 82270; 82805; 82962; 83735; 83880; 84100; 84484; 85007; 85025; 85027; 85610; 85730; 86704; 86706; 86708; 86803; 86850; 86900; 86901; 86920; 87070; 87081; 87086; 87205; 87340; 87426; 93005; 93306; 94002; 94003; 94640; 96365; 96375; 97110; 97116; 97163; 97530; C9113; G0378; J0330; J0696; J1815; J2250; J2704; J3480; J3490; J7060

== ENCOUNTER 2023-03-24 22:03 | Inpatient (IN) | payer MEDICARE, OTHER ==
[~2023-03-24] VITALS: Ht 157.5 cm; Wt 72.7 kg
[~2023-03-24 22:03] MED LIST changes: -CLIN150C PO; -CLON0.1T PO; -KETO0.3S OP; -LEVA3NEB9 NEB; -LISI20TA56 PO; -PRED1SUS4 OP; -Pantoprazole Sodium Sesquihydr PO
[2023-03-24] MEDS ORDERED: ALBUTEROL SULF 2.5 MG/0.5ML(0.5%) NEB SOLN NEB ONE (22:30)
[2023-03-24] MEDS ORDERED: IPRATROPIUM BROM 0.5 MG/2.5ML INH SOL NEB ONE (22:30)
[2023-03-24 22:35] VITALS: PULSE 110; RESP 25; O2SAT 100
[2023-03-24 22:44] LABS: Basophils # (auto) 0.1 10 ^3/uL (0-0.2); Basophils % (auto) 0.6 % (0.0-2.0); Eosinophils # (auto) 0.2 10 ^3/uL (0-0.8); Eosinophils % (auto) 2.2 % (0.0-7.0); Hemoglobin 9.5 g/dL (12.2-16.2); Lymphocytes # (auto) 3.8 10 ^3/uL (0.4-5.4); Lymphocytes % (auto) 39.3 % (10.0-50.0); Mean Corpuscular Hemoglobin 23.7 pg (28.0-32.0); Mean Corpuscular Hgb Conc. 29.5 g/dL (32.0-36.0); Mean Corpuscular Volume 80.3 fL (80.0-100.0); Monocytes # (auto) 0.6 10 ^3/uL (0-1.3); Monocytes % (auto) 6.1 % (0.0-12.0); Neutrophils % (auto) 51.8 % (37.0-80.0); Nucleated Red Blood Cells % 0.1 %; Red Blood Cells 3.99 10^6/uL (4.0-5.20); Red Cell Distribution Width 17.4 % (11.8-14.3); White Blood Cell 9.7 10^3/uL (4.4-10.8)
[2023-03-24] MEDS ORDERED: FUROSEMIDE 100 MG/10ML VIAL IV ONE (22:45)
[2023-03-24 23:03] LABS: Alanine Aminotransferase 34 U/L (7-40); Albumin 4.1 g/dL (3.2-4.8); Alkaline Phosphatase 96 U/L (46-116); Anion Gap 4 (5-15); Aspartate Aminotransferase 39 U/L (13-40); BUN/Creatinine Ratio 15.2 (10.0-20.0); Bilirubin, Total 0.5 mg/dL (0.2-1.0); Blood Urea Nitrogen 19 mg/dL (9-23); Calcium 9.3 mg/dL (8.7-10.4); Carbon Dioxide 30 mmol/L (20-30); Chloride 104 mmol/L (98-107); Potassium 5.4 mmol/L (3.5-5.1); Sodium 138 mmol/L (136-145); Total Protein 6.5 g/dL (5.7-8.2)
[2023-03-24 23:14] VITALS: PULSE 112; RESP 40; O2SAT 100
[2023-03-24] MEDS ORDERED: SODIUM CHLORIDE 0.9% 500 ML IV ONE (23:15)
[2023-03-24 23:17] LABS: Base Excess 1.2 mmol/L (-2.0-2.0)
[2023-03-24 23:19] LABS: Urine Bacteria NONE SEEN /hpf (None Seen); Urine Blood TRACE /uL (Negative); Urine Clarity Clear (Clear); Urine Color Yellow (Yellow); Urine Hyaline Cast MOD /lpf (0 - 2); Urine Protein, UAD 1+ (Negative); Urine Specific Gravity 1.014 (1.001-1.035); Urine Urobilinogen Normal (Negative); Urine WBC 1 /hpf (0 - 5); Urine pH 5.5 (5.0-8.0)
[2023-03-24 23:30] LABS: Glucose 276 mg/dL (74-106)
[2023-03-25] VITALS (10 sets, daily range): BP systolic 132–150; BP diastolic 71–78; PULSE 58–90; RESP 20–32; O2SAT 95–99
[2023-03-25] MEDS ORDERED: SODIUM CHLORIDE 0.9% 500 ML IV ONE (00:30)
[2023-03-25] MEDS ORDERED: ASPirin 325 MG TAB PO ONE (02:00)
[2023-03-25] MEDS ORDERED: DEXTROSE (50%) 50ML SYRG IV PRN (06:30)
[2023-03-25] MEDS ORDERED: MORPHINE SULFATE INJ 2 MG/ml SYRG IV PRN (06:30)
[2023-03-25] MEDS ORDERED: ACETAMINOPHEN 325 MG TAB PO PRN (06:30)
[2023-03-25] MEDS ORDERED: NITROGLYCERIN 0.4 MG SL TAB SL PRN (06:30)
[2023-03-25] MEDS ORDERED: ONDANSETRON HCL 4 MG/2 ML VIAL IV PRN (06:30)
[2023-03-25] MEDS: InsuLIN REG 1unit/0.01ml Soln (100units/ml) SC SCH ×4 (06:51→22:47)
[2023-03-25] MEDS: ACCU-CHEK COMFORT CURVE STRIP VI SCH ×4 (06:51→22:47)
[2023-03-25] MEDS ORDERED: cloNIDine HCL 0.1 MG TAB PO PRN (08:00)
[2023-03-25] MEDS ORDERED: FUROSEMIDE 100 MG/10ML VIAL IV ONE (08:00)
[2023-03-25 09:03] LABS: Anion Gap 5 (5-15); Carbon Dioxide 31 mmol/L (20-30); Chloride 104 mmol/L (98-107); Sodium 140 mmol/L (136-145)
[2023-03-25 09:04] LABS: Calcium 9.2 mg/dL (8.5-10.1)
[2023-03-25 09:07] LABS: INR 1.05 (0.9-1.15); Partial Thromboplastin Time 23.1 SEC (24.5-34.5)
[2023-03-25 09:09] LABS: BUN/Creatinine Ratio 16.9 (10.0-20.0); Blood Urea Nitrogen 15 mg/dL (9-23); Glucose 131 mg/dL (74-106); Triglycerides 75 mg/dL (< 150)
[2023-03-25 09:10] LABS: LDL Cholesterol 85 mg/dL (< 100)
[2023-03-25 09:11] LABS: Cholesterol 168 mg/dL (< 200); HDL Cholesterol 68 mg/dL (40-59)
[2023-03-25 09:18] LABS: Eosinophils # (auto) 0.1 10 ^3/uL (0-0.8); Hemoglobin 8.2 g/dL (12.2-16.2); Lymphocytes # (auto) 0.8 10 ^3/uL (0.4-5.4); Monocytes # (auto) 0.3 10 ^3/uL (0-1.3); Nucleated Red Blood Cells % 0.1 %
[2023-03-25 09:19] LABS: Basophils # (auto) 0.1 10 ^3/uL (0-0.2); Eosinophils % (auto) 1.3 % (0.0-7.0); Hematocrit 27.2 % (36.0-46.0); Lymphocytes % (auto) 15.5 % (10.0-50.0); Mean Corpuscular Hemoglobin 23.5 pg (28.0-32.0); Mean Corpuscular Hgb Conc. 30.1 g/dL (32.0-36.0); Monocytes % (auto) 5.9 % (0.0-12.0); Neutrophils # (auto) 4.1 10 ^3/uL (1.6-8.6); Neutrophils % (auto) 76.3 % (37.0-80.0); Red Blood Cells 3.49 10^6/uL (4.0-5.20); Red Cell Distribution Width 16.9 % (11.8-14.3); White Blood Cell 5.4 10^3/uL (4.4-10.8)
[2023-03-25 09:35] LABS: Magnesium 1.8 mg/dL (1.6-2.6)
[2023-03-25] MEDS ORDERED: LISINOPRIL 10 MG TAB PO SCH (10:00)
[2023-03-25 10:28] LABS: % Iron Saturation 6.6 % (15-50)
[2023-03-25] MEDS: ASPirin 81 mg TAB PO SCH (11:31)
[2023-03-25] MEDS: ENOXAPARIN SOD 30 MG/0.3 ML SYRINGE SC SCH (11:33)
[2023-03-25] MEDS: CARVEDILOL 3.125 MG TAB PO SCH ×2 (11:33→23:02)
[2023-03-25] MEDS: SPIRONOLACTONE 25 MG TAB PO SCH (11:34)
[2023-03-25 11:35] LABS: Base Excess 7.9 mmol/L (-2.0-2.0)
[2023-03-25] MEDS: IPRATROPIUM BROM 0.5 MG/2.5ML INH SOL NEB PRN (14:46)
[2023-03-25] MEDS: ALBUTEROL SULF 2.5 MG/0.5ML(0.5%) NEB SOLN NEB PRN (14:46)
[2023-03-25] MEDS: FUROSEMIDE 40 MG/4 ML VIAL IV SCH (18:50)
[2023-03-25 21:13] LABS: COVID19 ANTIGEN SOFIA FIA NEGATIVE (NEGATIVE)
[2023-03-25 21:14] LABS: Rapid Influenza A Negative (Negative); Rapid Influenza B Negative (Negative)
[2023-03-25] MEDS ORDERED: ATORVASTATIN 20 MG TAB PO SCH (22:00)
[2023-03-25] MEDS: ATORVASTATIN 20 MG TAB PO SCH (23:02)
[2023-03-26] VITALS (11 sets, daily range): BP systolic 92–126; BP diastolic 40–74; PULSE 51–71; RESP 16–20; TEMP 97.9–98.7; O2SAT 94–99
[2023-03-26 05:38] LABS: Basophils # (auto) 0.1 10 ^3/uL (0-0.2); Eosinophils # (auto) 0.2 10 ^3/uL (0-0.8); Hemoglobin 8.9 g/dL (12.2-16.2); Mean Corpuscular Hemoglobin 23.3 pg (28.0-32.0); Monocytes # (auto) 0.5 10 ^3/uL (0-1.3); Nucleated Red Blood Cells % 0.2 %; Red Cell Distribution Width 17.2 % (11.8-14.3)
[2023-03-26 05:40] LABS: Basophils % (auto) 1.9 % (0.0-2.0); Eosinophils % (auto) 3.2 % (0.0-7.0); Hematocrit 29.9 % (36.0-46.0); Lymphocytes # (auto) 1.3 10 ^3/uL (0.4-5.4); Lymphocytes % (auto) 23.1 % (10.0-50.0); Mean Corpuscular Hgb Conc. 29.8 g/dL (32.0-36.0); Mean Corpuscular Volume 78.1 fL (80.0-100.0); Monocytes % (auto) 9.8 % (0.0-12.0); Neutrophils # (auto) 3.4 10 ^3/uL (1.6-8.6); Red Blood Cells 3.82 10^6/uL (4.0-5.20); White Blood Cell 5.4 10^3/uL (4.4-10.8)
[2023-03-26 05:45] LABS: Anion Gap 6 (5-15); Carbon Dioxide 37 mmol/L (20-30); Chloride 98 mmol/L (98-107); Potassium 4.2 mmol/L (3.5-5.1); Sodium 141 mmol/L (136-145)
[2023-03-26 05:46] LABS: Calcium 9.4 mg/dL (8.5-10.1)
[2023-03-26 05:51] LABS: BUN/Creatinine Ratio 20.7 (10.0-20.0); Blood Urea Nitrogen 17 mg/dL (9-23); Glucose 101 mg/dL (74-106)
[2023-03-26] MEDS: FUROSEMIDE 40 MG/4 ML VIAL IV SCH (06:11)
[2023-03-26] MEDS: ACCU-CHEK COMFORT CURVE STRIP VI SCH ×4 (06:53→21:39)
[2023-03-26] MEDS: InsuLIN REG 1unit/0.01ml Soln (100units/ml) SC SCH ×4 (06:53→21:39)
[2023-03-26] MEDS: EMPAGLIFLOZIN 10 MG TAB PO SCH (07:01)
[2023-03-26] MEDS ORDERED: FERROUS SULFATE 325mg EC TAB PO ONE (09:30)
[2023-03-26] MEDS: SPIRONOLACTONE 25 MG TAB PO SCH (10:31)
[2023-03-26] MEDS: ASPirin 81 mg TAB PO SCH (10:34)
[2023-03-26] MEDS: ENOXAPARIN SOD 30 MG/0.3 ML SYRINGE SC SCH (10:34)
[2023-03-26] MEDS: CARVEDILOL 3.125 MG TAB PO SCH (10:34)
[2023-03-26] MEDS ORDERED: POTA10TA51 PO (11:34)
[2023-03-26] MEDS ORDERED: FURO20TA3 PO (11:34)
[2023-03-26] MEDS ORDERED: ATOR10TA PO (11:34)
[2023-03-26] MEDS ORDERED: CLON0.2T PO (11:34)
[2023-03-26] MEDS ORDERED: FERR1TAB36 PO (11:34)
[2023-03-26] MEDS ORDERED: ALBUTEROL MEDNEB 2.5 mg/3ml NEB ONE (14:16)
[2023-03-26] MEDS: IPRATROPIUM BROM 0.5 MG/2.5ML INH SOL NEB PRN (14:31)
[2023-03-26] MEDS: ALBUTEROL SULF 2.5 MG/0.5ML(0.5%) NEB SOLN NEB PRN (14:31)
[2023-03-26] MEDS: FERROUS SULFATE 325mg EC TAB PO SCH (18:21)
[2023-03-26] MEDS: ATORVASTATIN 20 MG TAB PO SCH (21:45)
[2023-03-27] VITALS (9 sets, daily range): BP systolic 103–130; BP diastolic 49–63; PULSE 61–73; RESP 14–17; TEMP 97.5–98.6; O2SAT 97–100
[2023-03-27 05:47] LABS: Eosinophils # (auto) 0.3 10 ^3/uL (0-0.8); Eosinophils % (auto) 5.9 % (0.0-7.0); Neutrophils # (auto) 3.4 10 ^3/uL (1.6-8.6); Nucleated Red Blood Cells % 0.1 %
[2023-03-27 05:50] LABS: Basophils # (auto) 0 10 ^3/uL (0-0.2); Basophils % (auto) 0.7 % (0.0-2.0); Hematocrit 31.2 % (36.0-46.0); Hemoglobin 9.5 g/dL (12.2-16.2); Lymphocytes # (auto) 1.3 10 ^3/uL (0.4-5.4); Lymphocytes % (auto) 22.9 % (10.0-50.0); Mean Corpuscular Hemoglobin 23.5 pg (28.0-32.0); Mean Corpuscular Hgb Conc. 30.5 g/dL (32.0-36.0); Mean Corpuscular Volume 77.1 fL (80.0-100.0); Monocytes # (auto) 0.7 10 ^3/uL (0-1.3); Monocytes % (auto) 11.4 % (0.0-12.0); Neutrophils % (auto) 59.1 % (37.0-80.0); Red Blood Cells 4.04 10^6/uL (4.0-5.20); White Blood Cell 5.7 10^3/uL (4.4-10.8)
[2023-03-27 05:56] LABS: Chloride 99 mmol/L (98-107); Potassium 3.8 mmol/L (3.5-5.1); Sodium 142 mmol/L (136-145)
[2023-03-27 05:57] LABS: Anion Gap 5 (5-15); Carbon Dioxide 38 mmol/L (20-30)
[2023-03-27 05:58] LABS: Calcium 9.3 mg/dL (8.5-10.1)
[2023-03-27 06:02] LABS: Glucose 99 mg/dL (74-106)
[2023-03-27 06:03] LABS: BUN/Creatinine Ratio 28.1 (10.0-20.0); Blood Urea Nitrogen 25 mg/dL (9-23)
[2023-03-27] MEDS: ACCU-CHEK COMFORT CURVE STRIP VI SCH ×4 (06:22→22:03)
[2023-03-27] MEDS: InsuLIN REG 1unit/0.01ml Soln (100units/ml) SC SCH ×4 (06:22→22:00)
[2023-03-27] MEDS: EMPAGLIFLOZIN 10 MG TAB PO SCH (06:22)
[2023-03-27] MEDS ORDERED: FUROSEMIDE 40 MG/4 ML VIAL IV ONE (08:45)
[2023-03-27] MEDS: FERROUS SULFATE 325mg EC TAB PO SCH ×2 (09:50→17:15)
[2023-03-27] MEDS: SPIRONOLACTONE 25 MG TAB PO SCH (09:50)
[2023-03-27] MEDS: CARVEDILOL 3.125 MG TAB PO SCH ×2 (09:52→21:59)
[2023-03-27] MEDS ORDERED: ENOXAPARIN SOD 40 MG/0.4 ML SYRINGE SC SCH (10:00)
[2023-03-27] MEDS ORDERED: ASPirin 81 mg TAB PO SCH (10:00)
[2023-03-27] MEDS ORDERED: FUROSEMIDE 40 MG/4 ML VIAL IV SCH ×2 (18:00)
[2023-03-27] MEDS: ATORVASTATIN 20 MG TAB PO SCH (22:00)
== END 2023-03-28 02:42 | disposition short-term general hospital (02) | DRG 280 ==
LOC: ER 22:03 → TELE 03-25 06:27 → TELE-WESTW 03-26 09:00
PROVIDERS: ADMIT Internal Medicine Pulmonary Disease; ATTEND Student in an Organized Health Care Education/Training Program
PROC: 5A09457 Assistance with Respiratory Ventilation, 24-96 Consecutive Hours, Continuous Positive Airway Pressure (ICD-10-PCS; principal; 2023-03-24)
DX: I13.0 Hypertensive heart and chronic kidney disease with heart failure and stage 1 through stage 4 chronic kidney disease, or unspecified chronic kidney disease (principal); I50.23 Acute on chronic systolic (congestive) heart failure; I21.A1 Myocardial infarction type 2; J96.21 Acute and chronic respiratory failure with hypoxia; N17.0 Acute kidney failure with tubular necrosis; I08.0 Rheumatic disorders of both mitral and aortic valves; I16.0 Hypertensive urgency; E87.5 Hyperkalemia; E11.22 Type 2 diabetes mellitus with diabetic chronic kidney disease; D50.9 Iron deficiency anemia, unspecified; E66.9 Obesity, unspecified; Z20.822 Contact with and (suspected) exposure to COVID-19; J44.89 Other specified chronic obstructive pulmonary disease; E78.5 Hyperlipidemia, unspecified; N18.9 Chronic kidney disease, unspecified; Z79.899 Other long term (current) drug therapy; Z91.013 Allergy to seafood; Z95.2 Presence of prosthetic heart valve; Z98.61 Coronary angioplasty status; Z68.29 Body mass index [BMI] 29.0-29.9, adult; Z88.1 Allergy status to other antibiotic agents; Z88.2 Allergy status to sulfonamides
CPT/HCPCS: 36415; 36600; 71045; 80048; 80053; 80061; 81001; 82805; 82962; 83036; 83540; 83550; 83735; 83880; 84443; 84484; 85025; 85610; 85730; 87426; 87804; 93005; 93306; 94640; 94660; 96360; G0378; J1815